=== PATIENT | female | born 1955 | race Caucasian/White ===

== ENCOUNTER 2016-12-09 05:33 | Day surgery (SDC) | payer OTHER ==
[~2016-12-09] VITALS: Ht 149.9 cm; Wt 51.4 kg
[~2016-12-09 05:33] MED LIST: ADV500 IH; ALBU8.5H IH; ALEN35TA32 PO; BACL10TA PO; BENA20 PO; DEXT1DRO OU; DICL75TA5 PO; FLUT16H NASAL; LEVO500 PO; MIRT15 PO; PRED1 PO; QUET200T PO; SIMV-261 PO; TIOT185 IH; TRAM50TA4 PO; VARE1TAB22 PO; VORT20TA PO
[2016-12-09] MEDS ORDERED: SODIUM CHLORIDE 0.9% 1,000 ML IV ONE ×2 (06:03→06:15)
[2016-12-09] MEDS ORDERED: MIDAZOLAM HCL 2 MG/2 ML VIAL ONE (07:33)
[2016-12-09] MEDS ORDERED: FentaNYL CITRATE-PF 100 MCG/2 ML VIAL ONE (07:33)
[2016-12-09] MEDS ORDERED: MethylPREDNISolone SOD SUCC 125 MG/2 ML VIAL IVP ONE (08:30)
[2016-12-09] MEDS ORDERED: MethylPREDNISolone SOD SUCC 125 MG/2 ML VIAL ONE (08:39)
[2016-12-09] MEDS ORDERED: BENZOCAINE 20% 50 MCG/SPRAY 57 GM TP ONE (16:13)
[2016-12-09] MEDS ORDERED: LIDOCAINE HCL 4% 50 ML SOLUTION TP ONE (16:13)
[2016-12-09] MEDS ORDERED: ALBUTEROL SULFATE 2.5 MG/0.5 ML NEB SOLUTION NEB ONE (16:13)
[2016-12-09] MEDS ORDERED: LIDOCAINE HCL 2% 30 ML JELLY TP ONE (16:13)
[2016-12-09] MEDS ORDERED: OXYGEN THERAPY IH SCH (20:00)
== END 2016-12-09 09:40 | disposition home or self-care (01) ==
LOC: SURGERY 05:33
PROVIDERS: ATTEND Internal Medicine Critical Care Medicine
DX: J38.4 Edema of larynx (principal); B37.0 Candidal stomatitis; J44.9 Chronic obstructive pulmonary disease, unspecified; E78.00 Pure hypercholesterolemia, unspecified; K44.9 Diaphragmatic hernia without obstruction or gangrene; M54.9 Dorsalgia, unspecified; F17.200 Nicotine dependence, unspecified, uncomplicated; Z88.8 Allergy status to other drugs, medicaments and biological substances; Z98.890 Other specified postprocedural states
CPT/HCPCS: 31623; 31624; 71010; 87015 ×2; 87070; 87101; 87205; 87220; 88108; 88312; J2250; J2930; J3010; J7030